=== PATIENT | male | born 1935 | race Caucasian/White ===

== ENCOUNTER → 2017-09-15 | Outpatient (CLI) | payer MEDICARE ==
[~2017-09-15] MED LIST: ALL300 PO; DOCU-416 PO; FENO160T11 PO; FISH OIL PO; GEMF600T91 PO; LEVO50 PO; LEVO75TA68 PO; LEVO75TA73 PO; LORA-629 PO; METO50TA19 PO; PER PO; PRAV40TA78 PO; TAMS0.4C25 PO; TAMS0.4C70 PO; TAMS0.4C76 PO
--- NOTE | 2017-09-15 20:16 | RADIOLOGY IMAGING REPORT ---
FAC[facility] PATIENT NAME: Renard Fuentes : 1935 MR: [id number] V: [id number] EXAM DATE: ORDERING PHYSICIAN: RICKY MATTHEWS TECHNOLOGIST: Location: [facility] - [place], [place] Patient: Renard Fuentes : 1935 Visit/Account:[id number] Date of Sevice: 09/15/2017 CAROTID HISTORY: Dizziness. Headache for 6 weeks. COMPARISON: None. TECHNIQUE: Ultrasound images were obtained of the carotid and vertebral arteries bilaterally. Graysc luigi and color flow and doppler images were obtained. Stenosis percent is determined from velocity cri teria extrapolated from diameter data as defined by the Society of Radiologists in Ultrasound Consens us Conference Radiology 2003; 229;340-346. FINDINGS: There are occasional irregular heart beats. RIGHT: There is antegrade flow within the right vertebral artery. There is mild mixed plaque at the c arotid bifurcation. Peak systolic velocity CCA: 134 cm/s Peak systolic velocity ECA: 73 cm/s Peak systolic velocity carotid bulb: 86 cm/s Peak systolic velocity proximal ICA: 46 cm/s Peak systolic velocity mid ICA: 85 cm/s Peak systolic velocity distal ICA: 103 cm/s ICA/CCA ratio is 0.8. LEFT: There is antegrade flow within the left vertebral artery. There is mild mixed left common carot id artery and within the carotid bulb. Peak systolic velocity CCA: 138 cm/s Peak systolic velocity ECA: 84 cm/s Peak systolic velocity carotid bulb: 68 cm/s Peak systolic velocity proximal ICA: 53 cm/s Peak systolic velocity mid ICA: 70 cm/s Peak systolic velocity distal ICA: 65 cm/s ICA/CCA ratio is 0.5. IMPRESSION: 1. There is antegrade flow in the bilateral vertebral arteries. 2. Findings are consistent with less than 50 percent stenosis of the bilateral internal carotid arter ies. 3. Occasional irregular heartbeats. Report Dictated By: Raiza Arora at 09/15/2017 8:05 PM Report E-Signed By: Raiza Arora at 09/15/2017 8:12 PM WSN:[id number]
== END ==
LOC: US 01:54
PROVIDERS: ATTEND Nurse Practitioner Psychiatric/Mental Health
DX: I65.23 Occlusion and stenosis of bilateral carotid arteries (principal); I49.9 Cardiac arrhythmia, unspecified
CPT/HCPCS: 93880